=== PATIENT | female | born 1930 | race Caucasian/White ===

== ENCOUNTER 2018-04-16 13:20 | Inpatient (IN) ==
[2018-04-16] MEDS ORDERED: ACETAMINOPHEN 325 MG TABLET PO PRN (14:40)
[2018-04-16] MEDS ORDERED: DOCUSATE SODIUM 100 MG CAPSULE PO PRN (14:40)
[2018-04-16] MEDS ORDERED: diphenhydrAMINE CAP 25 MG CAPSULE PO PRN (14:40)
[2018-04-16] MEDS ORDERED: LACTULOSE 20 GM/30 ML UDCUP PO PRN (14:40)
[2018-04-16] MEDS ORDERED: MAGNESIUM SULF RIDER 4 GM in PREMIX 1 EACH IV PRN (14:40)
[2018-04-16] MEDS ORDERED: MAGNESIUM SULF RIDER 2 GM in PREMIX 1 EACH IV PRN (14:40)
[2018-04-16] MEDS ORDERED: PROMETHAZINE 25 MG TABLET PO PRN (14:40)
[2018-04-16] MEDS ORDERED: POTASSIUM CHLORIDE 20 MEQ TABLET PO PRN (14:40)
[2018-04-16] MEDS ORDERED: ZALEPLON 5 MG CAPSULE PO PRN (14:40)
[2018-04-16] MEDS ORDERED: BISACODYL 5 MG TABLET PO PRN (14:40)
[2018-04-16] MEDS ORDERED: SODIUM CHLORIDE 0.45% 1,000 ML IV SCH (15:00)
[2018-04-16 15:04] LABS: Troponin I 0.015 NG/ML (0.00-0.045)
[2018-04-16 17:49] LABS: Apearance,Urine Slightly Hazy (Clear); Bacteria,Urine Occasional /HPF (Few); Bilirubin,Urine Negative (Negative); Blood, Urine Negative (Negative); Glucose,Urine (UA) Negative (Negative); Hyaline Casts,Urine 1 /LPF (0-3); Ketones,Urine Negative (Negative); Nitrite,Urine Negative (Negative); Protein,Urine Negative; RBC,Urine <1 /HPF (0-4); Squamous Epithelial Cell,Urine Few /HPF (0-10); Urine Color Yellow (Yellow); Urine Urobilinogen < 2.0 EU/DL (0.2-1.0); WBC,Urine 5 /HPF (0-6)
[2018-04-17] MEDS: ATROPINE 1 MG/10 ML SYRINGE IV PRN ×2 (01:52→02:52)
[2018-04-17] MEDS: ONDANSETRON 4 MG/2 ML VIAL IV PRN (02:44)
[2018-04-17] MEDS ORDERED: ONDANSETRON 4 MG/2 ML VIAL IV ONE (04:00)
[2018-04-17] MEDS ORDERED: EPINEPHrine 1 MG/10 ML SYRINGE IV ONE (04:06)
[2018-04-17] MEDS ORDERED: MORPHINE 4 MG/1 ML VIAL ONE (04:14)
[2018-04-17] MEDS ORDERED: MORPHINE 4 MG/1 ML VIAL IV PRN (04:25)
[2018-04-17] MEDS ORDERED: DOPamine 800 MG/250 ML PREMIX IV ONE (04:26)
[2018-04-17] MEDS ORDERED: DOPamine 800 MG/250 ML PREMIX IV PRN (04:27)
[2018-04-17 04:41] LABS: ABG Base Excess -3.8 MMOL/L (-2.5-2.5); ABG HCO3 21.9 MMOL/L (20-26); ABG Oxygen Saturation 88.4 % (95-100); ABG PCO2 42.4 MM HG (35-48); ABG PH 7.331 (7.35-7.45); ABG PO2 64.4 MM HG (80-95); ABG TCO2 23.2 MMOL/L (23-27)
[2018-04-17 04:41] LABS: Basophils # 0.1 10*3/uL (0.0-0.2); Basophils % 0.7 % (0.0-0.8); Eosinophils # 0.2 10*3/uL (0.0-0.87); Eosinophils % 2.3 % (0.00-10.9); Hematocrit 35.1 VOL% (35.7-47.0); Hemoglobin 10.7 GM/DL (12.0-16.0); Immature Granulocytes % 0.4 %; Immature Granulocytes Absolute 0.04 #; Lymphocytes # 2.7 10*3/uL (1.4-4.0); Lymphocytes % 29.6 % (21.3-54.2); Mean Corpuscular HGB Conc 30.5 GM/DL (32-36); Mean Corpuscular Hemoglobin 27 PG (27-34); Mean Corpuscular Volume 89.5 FL (87-102); Mean Platelet Volume 9.6 FL (9.6-12.0); Monocytes # 0.9 10*3/uL (0.11-0.8); Monocytes % 9.3 % (1.7-12.7); Neutrophils # 5.3 10*3/uL (1.4-7.4); Neutrophils % 57.7 % (38.7-73.9); Platelet Count 216 T/CUMM (130-400); Red Blood Count 3.92 MC/CUMM (3.8-5.5); Red Cell Distribution Width 14.9 % (9.3-17.3); White Blood Count 9.1 T/CUMM (4-12)
[2018-04-17 04:43] LABS: Basophils # 0.1 10*3/uL (0.0-0.2); Basophils % 0.5 % (0.0-0.8); Eosinophils # 0.2 10*3/uL (0.0-0.87); Eosinophils % 1.7 % (0.00-10.9); Hemoglobin 10.6 GM/DL (12.0-16.0); Immature Granulocytes Absolute 0.12 #; Lymphocytes # 4.7 10*3/uL (1.4-4.0); Lymphocytes % 40.6 % (21.3-54.2); Mean Corpuscular HGB Conc 29.4 GM/DL (32-36); Mean Corpuscular Hemoglobin 27 PG (27-34); Mean Corpuscular Volume 90.3 FL (87-102); Mean Platelet Volume 9.2 FL (9.6-12.0); Monocytes # 0.9 10*3/uL (0.11-0.8); Monocytes % 7.9 % (1.7-12.7); Neutrophils # 5.6 10*3/uL (1.4-7.4); Neutrophils % 48.3 % (38.7-73.9); Platelet Count 217 T/CUMM (130-400); Red Cell Distribution Width 14.8 % (9.3-17.3); White Blood Count 11.6 T/CUMM (4-12)
[2018-04-17 04:49] LABS: Hematocrit 36.1 VOL% (35.7-47.0)
[2018-04-17 04:54] LABS: Albumin 2.7 G/DL (3.4-5.0); Bilirubin,Total 0.5 MG/DL (0.2-1.0); Calcium 8.5 MG/DL (8.5-10.1); Osmolality,Calculated 287.3 MOS/KG (273-304); Potassium 5.1 MMOL/L (3.5-5.1); Total Protein 6.9 G/DL (6.4-8.3)
[2018-04-17] MEDS ORDERED: LIDOCAINE 1% 20 ML VIAL ONE ×2 (05:08→13:15)
[2018-04-17 05:50] LABS: Alanine Aminotransferase 20 U/L (13-56); Albumin 2.9 G/DL (3.4-5.0); Alkaline Phosphatase 127 U/L (45-117); Aspartate Amino Transferase 24 U/L (0-37); Blood Urea Nitrogen 24 MG/DL (7-18); Calcium 8.6 MG/DL (8.5-10.1); Glucose 264 MG/DL (74-106); Osmolality,Calculated 289.5 MOS/KG (273-304); Potassium 4.5 MMOL/L (3.5-5.1); Sodium 139 MMOL/L (136-145); Total Protein 7.5 G/DL (6.4-8.3); Troponin I 0.024 NG/ML (0.00-0.045)
[2018-04-17 05:54] LABS: Apearance,Urine CLEAR (Clear); Bilirubin,Urine Negative (Negative); Blood, Urine Negative (Negative); Glucose,Urine (UA) Negative (Negative); Ketones,Urine Negative (Negative); Mucus,Urine Occasional /LPF (Occasional); Nitrite,Urine Negative (Negative); Protein,Urine Negative; Urine Color Yellow (Yellow); Urine Specific Gravity 1.014 (1.001-1.035); WBC,Urine <1 /HPF (0-6)
[2018-04-17] MEDS: SODIUM CHLORIDE 0.9% 1,000 ML IV SCH ×2 (06:52→16:38)
[2018-04-17] MEDS ORDERED: ALBUTEROL/IPRATROPIUM 3 ML NEB RESP TX SCH (07:00)
[2018-04-17] MEDS: ALBUTEROL/IPRATROPIUM 3 ML NEB RESP TX SCH ×4 (07:40→20:18)
[2018-04-17] MEDS: PANTOPRAZOLE 40 MG TABLET PO SCH (08:56)
[2018-04-17] MEDS ORDERED: diphenhydrAMINE CAP 25 MG CAPSULE PO ONE (09:00)
[2018-04-17] MEDS ORDERED: DIAZEPAM 5 MG TABLET PO ONE (09:00)
[2018-04-17] MEDS ORDERED: HEPARIN/NACL 0.9% 2 UNITS/ML 500 ML IV ONE (13:15)
[2018-04-17] MEDS ORDERED: PROPOFOL 200 MG/20 ML VIAL IV ONE (15:23)
[2018-04-17] MEDS ORDERED: ETOMIDATE 40 MG/20 ML VIAL IV ONE (15:23)
[2018-04-17] MEDS ORDERED: fentaNYL 100 MCG/2 ML VIAL ONE (15:23)
[2018-04-17] MEDS ORDERED: SODIUM CHLORIDE 0.9% 250 ML IV ONE (15:23)
[2018-04-17] MEDS ORDERED: HEPARIN 10,000 UNIT/10 ML VIAL ONE (15:23)
[2018-04-17] MEDS: INSULIN REGULAR 100 UNIT/ML SUBCUT SCH ×2 (16:38→22:30)
[2018-04-17] MEDS: PREGABALIN 75 MG CAPSULE PO SCH (20:55)
[2018-04-17] MEDS: LOSARTAN 25 MG TABLET PO SCH (20:55)
[2018-04-17] MEDS: DONEPEZIL 10 MG TABLET PO SCH (20:55)
[2018-04-17] MEDS: MEMANTINE 10 MG TABLET PO SCH (20:56)
[2018-04-18] MEDS: ALBUTEROL/IPRATROPIUM 3 ML NEB RESP TX SCH ×4 (00:27→19:24)
[2018-04-18 04:04] LABS: Basophils # 0.1 10*3/uL (0.0-0.2); Basophils % 0.6 % (0.0-0.8); Eosinophils # 0.3 10*3/uL (0.0-0.87); Eosinophils % 3.6 % (0.00-10.9); Hematocrit 31.8 VOL% (35.7-47.0); Hemoglobin 9.4 GM/DL (12.0-16.0); Immature Granulocytes % 0.5 %; Immature Granulocytes Absolute 0.04 #; Lymphocytes # 1.5 10*3/uL (1.4-4.0); Mean Corpuscular HGB Conc 29.6 GM/DL (32-36); Mean Corpuscular Hemoglobin 27 PG (27-34); Mean Corpuscular Volume 90.3 FL (87-102); Mean Platelet Volume 9.6 FL (9.6-12.0); Monocytes # 0.8 10*3/uL (0.11-0.8); Monocytes % 9.2 % (1.7-12.7); Neutrophils # 5.5 10*3/uL (1.4-7.4); Neutrophils % 67.1 % (38.7-73.9); Platelet Count 185 T/CUMM (130-400); Red Blood Count 3.52 MC/CUMM (3.8-5.5); White Blood Count 8.1 T/CUMM (4-12)
[2018-04-18 04:11] LABS: Alanine Aminotransferase 19 U/L (13-56); Albumin 2.6 G/DL (3.4-5.0); Alkaline Phosphatase 112 U/L (45-117); Aspartate Amino Transferase 24 U/L (0-37); Bilirubin,Total < 0.39 MG/DL (0.2-1.0); Blood Urea Nitrogen 24 MG/DL (7-18); Calcium 8.5 MG/DL (8.5-10.1); Glucose 137 MG/DL (74-106); Sodium 143 MMOL/L (136-145); Total Protein 6.9 G/DL (6.4-8.3)
[2018-04-18] MEDS: INSULIN REGULAR 100 UNIT/ML SUBCUT SCH ×3 (09:50→17:53)
[2018-04-18] MEDS: PANTOPRAZOLE 40 MG TABLET PO SCH (09:50)
[2018-04-18] MEDS: SERTRALINE 50 MG TABLET PO SCH (09:51)
[2018-04-18] MEDS: PREGABALIN 75 MG CAPSULE PO SCH ×2 (09:51→21:49)
[2018-04-18] MEDS: POTASSIUM CHLORIDE 10 MEQ TABLET PO SCH (09:51)
[2018-04-18] MEDS: guaiFENesin/DM ER 600-30 MG TABLET PO PRN ×2 (09:51→21:49)
[2018-04-18] MEDS: SPIRONOLACTONE 25 MG TABLET PO SCH (09:51)
[2018-04-18] MEDS: LOSARTAN 25 MG TABLET PO SCH ×2 (09:51→21:49)
[2018-04-18] MEDS: MEMANTINE 10 MG TABLET PO SCH ×2 (09:52→21:49)
[2018-04-18] MEDS: MULTIVITAMIN (CENTRUM) TABLET PO SCH (09:52)
[2018-04-18] MEDS: DONEPEZIL 10 MG TABLET PO SCH (21:49)
[2018-04-19] MEDS: ALBUTEROL/IPRATROPIUM 3 ML NEB RESP TX SCH ×2 (01:03→07:29)
[2018-04-19] MEDS: INSULIN REGULAR 100 UNIT/ML SUBCUT SCH ×3 (01:30→11:45)
[2018-04-19 03:31] LABS: Basophils % 0.4 % (0.0-0.8); Eosinophils # 0.4 10*3/uL (0.0-0.87); Eosinophils % 5.1 % (0.00-10.9); Hematocrit 29.7 VOL% (35.7-47.0); Hemoglobin 8.6 GM/DL (12.0-16.0); Immature Granulocytes % 0.7 %; Immature Granulocytes Absolute 0.05 #; Lymphocytes # 2.2 10*3/uL (1.4-4.0); Lymphocytes % 32.7 % (21.3-54.2); Mean Corpuscular Hemoglobin 26 PG (27-34); Mean Corpuscular Volume 90.8 FL (87-102); Mean Platelet Volume 9.4 FL (9.6-12.0); Monocytes # 0.8 10*3/uL (0.11-0.8); Monocytes % 11.3 % (1.7-12.7); Neutrophils # 3.4 10*3/uL (1.4-7.4); Neutrophils % 49.8 % (38.7-73.9); Platelet Count 182 T/CUMM (130-400); Red Blood Count 3.27 MC/CUMM (3.8-5.5); Red Cell Distribution Width 14.9 % (9.3-17.3); White Blood Count 6.8 T/CUMM (4-12)
[2018-04-19 03:49] LABS: Albumin 2.4 G/DL (3.4-5.0); Bilirubin,Total 0.6 MG/DL (0.2-1.0); Calcium 8.4 MG/DL (8.5-10.1); Osmolality,Calculated 282.4 MOS/KG (273-304); Potassium 4.5 MMOL/L (3.5-5.1); Total Protein 6.5 G/DL (6.4-8.3)
[2018-04-19 04:25] LABS: Polychromasia Few
[2018-04-19 04:26] LABS: Hypochromasia Slight; Ovalocytes 1+; Platelet Estimate Normal
[2018-04-19] MEDS: ONDANSETRON 4 MG/2 ML VIAL IV PRN (05:50)
[2018-04-19] MEDS: PREGABALIN 75 MG CAPSULE PO SCH (08:53)
[2018-04-19] MEDS: POTASSIUM CHLORIDE 10 MEQ TABLET PO SCH (08:53)
[2018-04-19] MEDS: MULTIVITAMIN (CENTRUM) TABLET PO SCH (08:53)
[2018-04-19] MEDS: LOSARTAN 25 MG TABLET PO SCH (08:53)
[2018-04-19] MEDS: SPIRONOLACTONE 25 MG TABLET PO SCH (08:53)
[2018-04-19] MEDS: SERTRALINE 50 MG TABLET PO SCH (08:54)
[2018-04-19] MEDS: PANTOPRAZOLE 40 MG TABLET PO SCH (08:54)
[2018-04-19] MEDS: MEMANTINE 10 MG TABLET PO SCH (08:54)
[2018-04-19] MEDS: SODIUM CHLORIDE 0.9% 1,000 ML IV SCH (09:23)
[2018-04-19 11:40] VITALS: BP 128/68
== END 2018-04-19 15:01 | DRG 229 ==
LOC: EDUNIT# → EDBD → N.ED 13:20 → N.EDINP 14:40 → N.2W 16:08 → N.TELEN 16:55 → N.ICU 04-17 04:14 → N.TELES 04-17 13:56
PROVIDERS: ADMIT Internal Medicine Cardiovascular Disease; ATTEND Internal Medicine Cardiovascular Disease
PROC: CLMICRA (2018-04-17 13:15)